=== PATIENT | male | born 1990 | race Caucasian/White ===

== ENCOUNTER 2019-02-07 13:31 | Emergency (ER) | payer BC ==
[2019-02-07 13:38] VITALS: BP 123/83; PULSE 84; RESP 16; TEMP 98.4
[2019-02-07] MEDS ORDERED: DIPH,PERTUS(ACELL)TETVAC-LF 0.5 ML VIAL IM ONE (14:05)
--- NOTE | 2019-02-07 14:18 | ED ---
General Adult HPI - General Chief complaint: Wound/Laceration Stated complaint: Stepped on nail Time Seen by Provider: 02/07/19 14:03 Source: patient Mode of arrival: ambulatory Limitations: no limitations - History of Present Illness Initial comments: Patient is a 28-year-old male presenting to emergency Department with chief complaint of wanting to get a tetanus shot. Patient reports he had a minor abrasion on the lateral aspect of his right foot with a resting male. Patient is unaware of his tetanus status. Patient denies any puncture wounds and reports the patient is only superficial. Patient states the needle did not go through his shoe. Patient denies any pain, active bleeding. Patient is not on blood thinners. - Related Data Allergies Allergy/AdvReac Type Severity Reaction Status Date / Time amoxicillin Allergy Rash/Hives Verified 02/07/19 13:39 Review of Systems ROS Statement: Those systems with pertinent positive or pertinent negative responses have been documented in the HPI. ROS Other: All systems not noted in ROS Statement are negative. 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 Past Psychological History: No Psychological Hx Reported Smoking Status: Never smoker Past Alcohol Use History: None Reported Past Drug Use History: None Reported General Exam - General Exam Comments Initial Comments: General: Well-developed well-nourished distress HEENT: Normocephalic/atraumatic, PERLL, pharynx erythema, swallowing well, EAC no erythema, no exudates, TM clear, no cervical lymph nodes Neck: Supple, nontender, trachea midline Chest/Lungs: Normal respirations, no signs of respiratory distress clear to auscultation bilaterally no wheezes, rales, rhonchi Cardiac: Regular rate and rhythm, normal S1-S2, no murmurs rubs or gallops Abdomen/GI: Soft nontender, bowel sounds equal or quadrant x4, no guarding, no rebound no CVA tenderness Musculoskeletal: Nontender, full range of motion, no edema, strength equal bilaterally Skin: Warmth, no rashes or lesions, no cyanosis or diaphoresis Neurologic: AAO x 3, CN 2-12 intact, Psychiatric: Mood and affect normal, judgment normal Limitations: no limitations Course Vital Signs 02/07/19 13:35 Temperature 98.4 F Pulse Rate 84 Respiratory 16 Rate Blood Pressure 123/83 O2 Sat by Pulse 97 Oximetry Medical Decision Making - Medical Decision Making Patient is a 28-year-old male presenting to emergency Department with a chief complaint wanted to get a tetanus shot. The needle did not go through his shoe and the abrasion site is very superficial. Tetanus shot given. Patient asked to follow-up with primary care. Strict return parameters were thoroughly discussed the patient is understanding and agreeable. Case discussed with physician. Disposition Clinical Impression: Abrasion, Abrasion of foot or toe, right Disposition: HOME SELF-CARE Condition: Stable Instructions (If sedation given, give patient instructions): Abrasion (ED) Additional Instructions: Please follow with primary care. Please return to emergency department if symptoms worsen. Is patient prescribed a controlled substance at d/c from ED?: No Referrals: None,Stated [Primary Care Provider] - 1-2 days Time of Disposition: 14:18
== END 2019-02-07 14:24 | disposition home or self-care (01) ==
LOC: EC 13:31
DX: S90.811A Abrasion, right foot, initial encounter (principal); Z23 Encounter for immunization; Z88.0 Allergy status to penicillin; W45.0XXA Nail entering through skin, initial encounter
CPT/HCPCS: 90471; 90715; 99283